=== PATIENT | female | born 1965 | race Caucasian/White ===

== ENCOUNTER 2023-07-17 08:46 | Outpatient (AMB) | payer OTHER, SELFPAY ==
--- NOTE | 2023-07-17 09:03 | A.OFFVIS_ITS ---
Intake VS Expanded 07/17/23 09:04 07/24/23 20:52 Height 5 ft 6.5 in 5 ft 6.5 in Weight 240 lb 11.916 oz 241 lb BMI 38.3 38.3 Intake Visit Reasons: Obesity HPI Nutrition Presentation Details Pt presents for MNT for obesity. Pt was referred by PCP , Dr. Rollins from [facility] Pt reports needing assistance with meal planning for weight loss. typical meal intake: B: coffee in AM (sweet an low) banana, [place] yogurt and egg muffin tin L: smart one frozen meals 4-6 pm chicken with veggies , sweet pota to snack on crackers physical activity: sedentary ETOH/SMoking--- food frequency fruits: 1-2/d vegetables > 2 serving/d starches > 18 serving/d protein : 12-16 oz/d] dairy: 4 serving/d ZSM-Bsitbpf-Ag.Jeor Equation Height 5 ft 6.5 in Weight 241 lb Resting Metabolic Rate 1701.39 Calculated Activity Level Mild Activity Calories Needed to Maintain Weight 2339.41 Diagnosis Nutrition problem #1 food nutri know defi As related to (etiology) #1 diagnosis As evidenced by (sign/symptom) #1 knowledge deficit of diet Monitoring/Goals Nutrition problem monitoring total CHO intake Nutrition goal/outcome wt loss 5lbs in 2 months Learning/Education Readiness to learn good Stages of change preparation Most Recent Diabetes Results: No Data to Display Assessment & Plan Assessment & Plan (1) Obesity (BMI 30-39.9): Code(s): E66.9 - Obesity, unspecified Plan: wt: 109 kg Est kcal needs as per MSJ: 2300 (40% carb, 30% protein/fat) Est fluid needs as per 25-30 ml/d: 2700 Est prot per day as per 1 g/kg bw: 109 Recommend fiber intake : 8-10 g per day and gradually increase to 25-28 g per day for women and 35-38 g for men or as tolerated Recommend sodium intake per day: less than 2000 mg Educated patient on: ( R = reviewed V = verbalizes understanding N/R = needs review N/A = not applicable * Food sources of carbohydrate, adequate serving sizes and its role in various health conditions: R * Differences between complex carbohydrates a simple carbohydrates, role of fiber in diet: R * Differences between types of fats and role in diet (mono on saturated fat fatty acids, saturated fatty acids, trans fats): R * Food sources of sodium in salt and healthy modifications for heart health in kidney health: R * Healthy plate method concept: R * Physical activity: Benefits a precaution: R * Patient Instructions: Keep Consistency in physical activity 30 minutes daily or as tolerated Reduce your carbohydrates to 45-60 g at meal , 0-15 g as snack see meal plan for ideas keep a food record Coding Level of Care Code Nutr Indiv Intake (66608) Diagnoses Obesity (BMI 30-39.9) E66.9 Time Spent (min) 30
[2023-07-17 09:04] VITALS: BMI 38.3
[2023-07-24 20:52] VITALS: BMI 38.3
== END 2023-07-17 09:39 | disposition home or self-care (01) ==
PROVIDERS: PCP Internal Medicine; Visit Provider Dietitian, Registered
DX: E66.9 Obesity, unspecified (principal)

== ENCOUNTER → 2023-07-17 08:46 | Outpatient (BNVA) | payer OTHER, SELFPAY | PROVIDERS: PCP Internal Medicine; Visit Provider Dietitian, Registered | DX: E66.9 Obesity, unspecified (principal); Z68.38 Body mass index [BMI] 38.0-38.9, adult; Z71.3 Dietary counseling and surveillance | CPT/HCPCS: 97802 ==